=== PATIENT | male | born 1990 | race American Indian/Alaskan Native ===

== ENCOUNTER 2016-11-13 22:29 | Emergency (ER) | payer SELFPAY ==
[2016-11-13] MEDS ORDERED: TYLENOL ONE (23:46)
[2016-11-13] MEDS ORDERED: TYLENOL PO ONE (23:49)
[2016-11-14] MEDS ORDERED: TRIMOX PO ONE (05:39)
--- NOTE | 2016-11-14 05:40 | Emergency Department Report ---
HPI - General Chief Complaint: Dental/Oral Time Seen by Provider: 11/14/16 05:05 - HPI HPI: The patient is [id number] male who presents to ED complaining of 7/10 pain in the right side of his mouth x 2 months. Patient states that the pain has increased in severity over the last 7days. The pain is exacerbated by eating and opening of the mouth. Patient states the pain is alleviated initially with pain medication but comes back. Patient states that it radiates towards ear. Patient describes a as a throbbing, pressure-like sensation. Patient states otherwise well and has no other complaints. Patient has had no fevers and no chills. No chest pain, no shortness of breath. No abdominal pain. No shortness of breath or recent trauma to the face. ED Past Medical Hx - Past Medical History Previous Medical History?: No - Surgical History Past Surgical History?: No - Social History Smoking Status: Never Smoker Substance Use Type: None - Medications Home Medications: Home Medications Medication Instructions Recorded Confirmed Last Taken Type Acetaminophen/Codeine [Tylenol 1 tab PO Q6H PRN #12 tab 11/14/16 Unknown Rx /Codeine # 3 tab] Amoxicillin [Amoxicillin TAB] 875 mg PO BID #12 tablet 11/14/16 Unknown Rx ED Review of Systems ROS: Stated complaint: TOOTH ACHE Other details as noted in HPI Constitutional: denies: chills, fever Eyes: denies: eye pain, eye discharge, vision change ENT: dental pain. denies: ear pain, throat pain, hearing loss, congestion Respiratory: denies: cough, shortness of breath, wheezing Cardiovascular: denies: chest pain, palpitations Endocrine: no symptoms reported Gastrointestinal: denies: abdominal pain, nausea, diarrhea Genitourinary: denies: urgency, dysuria Musculoskeletal: denies: back pain, joint swelling, arthralgia Skin: denies: rash, lesions Neurological: denies: headache, weakness, paresthesias Psychiatric: denies: anxiety, depression Hematological/Lymphatic: denies: easy bleeding, easy bruising Physical Exam - Physical Exam Vital Signs: Vital Signs 11/13/16 22:44 Temperature 98.5 F Pulse Rate 73 Respiratory 18 Rate Blood Pressure 137/94 [Right] O2 Sat by Pulse 100 Oximetry Physical Exam: GENERAL: Alert and oriented x3, no apparent distress, Normal Gait, atraumatic. HEAD: Head is normocephalic and a-traumatic. EYES: Extra ocular muscles are intact. Pupils are equal, round, and reactive to light and accommodation. EARS: symetrical, atraumatic, non tender, ear canal clear and moderate cerumen, tympanic membrance non inflamed. gross auditory nml bilaterally. NOSE: Nose symetrical, Nontender,Nares appeared normal. MOUTH:Mouth is well hydrated and without lesions. Tonsils nonerythematous or swollen, Uvula midline, Tongue not elevated. Mucous membranes are moist. Posterior pharynx clear, no exudate or lesions. Patent airways. Tooth #29 dental caries, tender to palpation, no gingival enlargement NECK: Supple. Non edematous, No carotid bruits. No lymphadenopathy or thyromegaly. No C-spine tenderness LUNGS: Symetrical with respiration, No wheezing, no rales or crackles, CTAB. PSYCHIATRIC: Mood is congruent with affect, denies suicidal or homicidal ideations. SKIN: Warm and dry, No lesions, No ulceration or induration present. ED Course Vital Signs 11/13/16 22:44 Temperature 98.5 F Pulse Rate 73 Respiratory 18 Rate Blood Pressure 137/94 [Right] O2 Sat by Pulse 100 Oximetry ED Medical Decision Making - Medical Decision Making 26-year-old male who presents with left-sided Facial pain secondary to odontogenic caries ED course: Patient received 1000 mg of amoxicillin, Tylenol Odontogenic infection versus ear infection. Based upon history and physical examination, pain is a result of an infection of tooth number 29 and that the pain she feels on the right side of his face and towards the ear is referred pain from this infectious process. She has no evidence of acute impending airway compromise. At this point, patient will be discharged home on some antibiotics and pain trial, she will do well with an outpatient course of antibiotics. Follow up with the Dental Clinic as referred Critical care attestation.: If time is entered above; I have spent that time in minutes in the direct care of this critically ill patient, excluding procedure time. ED Disposition Clinical Impression: Dental caries, Tooth ache Disposition: TO HOME OR SELFCARE Is pt being admited?: No Does the pt Need Aspirin: No Condition: Stable Instructions: Dental Caries (ED), Toothache (ED) Additional Instructions: Follow-up with primary care physician and dentist has referred Take your medication as prescribed Prescriptions: Acetaminophen/Codeine [Tylenol /Codeine # 3 tab] 1 tab PO Q6H PRN #12 tab PRN Reason: Pain Amoxicillin [Amoxicillin TAB] 875 mg PO BID #12 tablet Referrals: PRIMARY CARE, [Primary Care Provider] - 3-5 Days [facility] [Outside] - 3-5 Days [facility] [Outside] - 3-5 Days Forms: Work/School Release Form(ED) Time of Disposition: 05:43
[2016-11-14 06:02] VITALS: BP 137/75
== END 2016-11-14 06:02 | disposition home or self-care (01) ==
LOC: ED 22:29
DX: K08.89 Other specified disorders of teeth and supporting structures (principal)
CPT/HCPCS: 99282